=== PATIENT | male | born 1955 | race Caucasian/White ===

== ENCOUNTER → 2019-12-03 | Outpatient (CLI) | payer OTHER ==
--- NOTE | 2019-12-03 10:29 | MR ---
"EXAMINATION TYPE: MR knee LT wo con DATE OF EXAM: 12/03/2019 COMPARISON: None HISTORY: Left knee pain TECHNIQUE: Multiplanar, multisequence imaging of the left knee is performed without IV contrast. FINDINGS: There is diffuse marrow edema throughout the medial articular femur and femoral condyle wit h a cortical defect at the articular surface compatible with osteochondral fracture. No significant d isplacement. Diffuse arthropathy noted and there is a complex tear involving the posterior horn and body of the me dial meniscus. There is grade IV chondromalacia involving the articular surface of the medial femur. There is abnormal intrasubstance signal in the posterior and anterior horn of the lateral meniscus [place] ggestive of degenerative tears. Hypertrophic change and narrowing of the marked thinning of the patellar cartilage compatible with ch ondromalacia. Marrow signal within the patella likely is reactive secondary to arthropathy. Patellar and quadriceps tendons are intact. Small amount of fluid in the suprapatellar bursa. Anterior cruciate, posterior cruciate, medial collateral and lateral collateral ligaments are all int act. There is a 2.5 x 1.8 x 7.7 cm popliteal fossa cyst. IMPRESSION: 1. Diffuse marrow edema throughout thearticular surface and medial femur extending into the condyle. There is a subchondral defect and findings compatible with an osteochondral fracture. No free fragme nt. 2. Osteoarthritis with chondromalacia as discussed above the most marked findings involving the media l compartment the knee and patellofemoral joint. 3. Complex tear posterior horn and body medial meniscus with meniscal extrusion. 4. Degenerative meniscal tears anterior and posterior horn lateral meniscus. 5. Large popliteal fossa cyst measuring 2.5 x 1.8 x 7.7 cm. A Yellow level critical message alert has been initiated for Ephraim Monson MD via the [employer] 36 0 | Critical Results System on 12/03/2019 10:25 AM. This message alert has been sent to Ephraim Monson MD via the preferences provided by the clinician for the receipt of Radiology Critical Findings. Pr ssage ID [id number]."
== END | disposition home or self-care (01) ==
LOC: RADMRIMAIN 08:56
PROVIDERS: ATTEND Orthopaedic Surgery
DX: S83.232A Complex tear of medial meniscus, current injury, left knee, initial encounter (principal); M17.12 Unilateral primary osteoarthritis, left knee; M71.22 Synovial cyst of popliteal space [Baker], left knee